=== PATIENT | male | born 1980 | race Caucasian/White ===

== ENCOUNTER 2021-12-12 07:13 | Emergency (ER) | payer SELFPAY ==
[~2021-12-12] VITALS: Ht 165.1 cm; Wt 79.5 kg
[~2021-12-12 07:13] MED LIST: BACTRIM DS1 TAB PO; KEFLEX500 M1 PO; LORTAB 7.5-3251 TAB PO; MOTRIN800 MG PO; NAPROSYN500 MG OR; NO HOME MEDS; PENICILLN VK500 MG OR; PERCOCET 5/321 COMBO PO; TRAMADOL HCL50 MG OR
[2021-12-12 07:37] VITALS: BP 153/112
[2021-12-12 08:00] VITALS: BP 136/69
[2021-12-12 08:30] VITALS: BP 148/97
[2021-12-12] MEDS ORDERED: AUGMENTIN400 MG/51 PO (08:33)
[2021-12-12 08:47] VITALS: BP 148/97
== END 2021-12-12 08:59 | disposition home or self-care (01) | DRG 153 ==
LOC: ED 07:13
DX: J02.0 Streptococcal pharyngitis (principal); F17.200 Nicotine dependence, unspecified, uncomplicated; Z20.822 Contact with and (suspected) exposure to COVID-19

== ENCOUNTER 2023-07-05 08:47 | Emergency (ER) | payer MEDICAID ==
[~2023-07-05] VITALS: Ht 165.1 cm; Wt 72.5 kg
[~2023-07-05 08:47] MED LIST changes: +AUGMENTIN400 MG/51 PO
[2023-07-05 09:00] VITALS: BP 131/89
[2023-07-05 09:27] VITALS: BP 133/82
[2023-07-05 09:30] VITALS: BP 137/83
[2023-07-05] MEDS ORDERED: ATORVASTATIN CA40 MG PO (09:30)
[2023-07-05] MEDS ORDERED: KETOROLAC TROMETHAMINE 30 MG/ML SDV IM ONE (09:35)
[2023-07-05] MEDS ORDERED: ACETAMINOPHEN 500 MG TAB PO ONE (09:35)
[2023-07-05] MEDS ORDERED: NAPROXEN500 MG PO (09:52)
[2023-07-05 09:55] VITALS: BP 137/83
== END 2023-07-05 10:00 | disposition home or self-care (01) ==
LOC: ED 08:47
DX: R07.81 Pleurodynia (principal); F17.200 Nicotine dependence, unspecified, uncomplicated